=== PATIENT | male | born 1980 | race African-American/Black ===

== ENCOUNTER 2017-07-30 09:21 | Emergency (ER) | payer OTHER ==
[~2017-07-30] VITALS: Ht 188 cm; Wt 117.9 kg
[2017-07-30] MEDS ORDERED: MOBIC7.5 MG PO ×2 (09:56→10:06)
[2017-07-30] MEDS ORDERED: PENICILLIN V P500 MG PO (09:56)
[2017-07-30] MEDS ORDERED: ULTRAM 50MG TAB50 MG PO (10:06)
[2017-07-30] MEDS ORDERED: CLEOCIN HCL150 MG PO (10:06)
[2017-07-30 10:35] VITALS: BP 134/78
== END 2017-07-30 10:36 | disposition home or self-care (01) ==
LOC: ER 09:21
DX: K08.89 Other specified disorders of teeth and supporting structures (principal)

== ENCOUNTER 2017-07-31 15:13 | Inpatient (IN) | payer OTHER ==
[~2017-07-31] VITALS: Ht 188 cm; Wt 52.6 kg
--- NOTE | ~2017-07-31 | HC ---
[facility] [place] [address] CONSULTATION Name: LIBRADO TRAMMELL Room #: 448-P ADM IN M.R.#: [id number] Admission: 07/31/17 Attend Phys: Yves Curry DO Discharge: Date of : 76 Report #: [id number] THIS REPORT FOR: //name// CC: Ramana Ruiz MD [facility] physician/PCP Yves Curry DO DATE OF SERVICE: 08/02/2017 SURGEON: Zana Hyman MD REASON FOR CONSULTATION: Otolaryngic evaluation for deep neck abscess. HISTORY OF PRESENT ILLNESS: The patient is a 36-year-old gentleman presenting to the Emergency Department on 07/31 complaining of toothache. The patient had this ongoing for at least 2-3 days and had began to notice some facial swelling as well as trismus. The patient had first come in to the Emergency Room on 07/30. He was treated with IV clindamycin and recommended dental consultation. He waited to fill the prescription, took only one dose and then represented to the Emergency Room complaining of difficulty talking and chewing. The patient does not see a dentist on a regular basis and he cannot remember the last time he saw a dentist. Examination revealed obvious swelling along the mandible consistent with a dental infection. I have reviewed personally his CT. This shows multiple periapical lucencies surrounding the mandibular teeth on the left including the posterior molar. The patient has 9 lower teeth on both sides present. There are multiple abscesses. There was no obvious extension of the abscess through the mandibular wall. There is no deep neck abscess present. There is a phlegmon and obvious enlargement of the masseter muscle. This phlegmon does produce some mass effect, but no airway compromise. There does not appear to be any deep neck involvement. The patient is noted to have cervical adenopathy, which appears reactive. Examination also shows similar dental abscesses on the right. The patient was admitted and Infectious Diseases consulted who had recommended ENT evaluation as well as Oral Surgery consultation. The patient has been placed on IV antibiotic and pain control. I have discussed with Dr. Curry yesterday afternoon and have recommended transfer to a center as there is no Oral Surgery consultation available at this hospital. This has been arranged for transit today. The patient's white count shows an elevated white blood cell count 16,500 with a left shift. PAST MEDICAL HISTORY: Significant for chronic constipation, chronic dental caries without dental care. [address] [address] CONSULTATION Name: LIBRADO TRAMMELL Room #: 448-P [facility] IN .R.#: [id number] Admission: 07/31/17 Attend Phys: Yves Curry DO Discharge: Date of : 76 Report #: [id number] SOCIAL HISTORY: He is a tobacco user every day. He denies alcohol. Otherwise unknown. MEDICATIONS: Reviewed in his MAR. ALLERGIES: None. REVIEW OF SYSTEMS: The patient is complaining of trismus and pain in his face. He is having no difficulty breathing. Remaining review of systems is negative. PHYSICAL EXAMINATION: GENERAL: Shows a well-developed 36-year-old gentleman seen in his hospital room, obvious pain around the left mandible. VITAL SIGNS: Show a temperature of 98.9 with a T-max of 100.3, pulse of 75, blood pressure 111/66, respirations 20, oxygen saturation of 96-100% on room air. HEENT: He is normocephalic. Pupils equal, round, reactive to light. Nasal exam shows a deviated septum to the left. Oral cavity, trismus to about 15 mm. The patient has swelling over the left mandible with multiple carious teeth in poor condition. There is no swelling on the floor of mouth or tongue. The tongue is mobile. Posterior airway appears intact without swelling. Facial exam shows swelling with dense phlegmon over the masseter muscle. There is no obvious fluctuance. There is minimal swelling inferior to the mandible and no evidence of any tracheal shift or deep neck swelling. IMPRESSION: Multiple dental abscesses with resultant masseter phlegmon, swelling and possible early abscess formation. PLAN: Arrangement has been made for transfer to [facility] where the patient will have access to Oral Surgery care for extraction of multiple teeth. There was no evidence of any deep neck abscess. The patient does have evidence of an obvious phlegmon in the masseter space consistent with this infection. There may be some early abscess formation. I agree with current antibiotic use. If the patient is not able to be transferred in an expedient manner to a center where Oral Surgery care is available and/or if this infection progresses with further swelling, this may have to have a temporary treatment with incision and drainage of the masseter space at this hospital. Ultimately, the patient will need to be transferred for definitive care of his multiple dental caries with extraction. The patient is in no danger of any airway compromise or deep neck abscess at this point. I have discussed this with Dr. Curry and the patient. I will stand available if there is any worsening of symptoms prior to his transfer. <ELECTRONICALLY SIGNED> By: Zana Hyman MD 08/03/17 1340 1629 0001 Zana Hyman MD /nt
--- NOTE | ~2017-07-31 | O ---
[facility] [place] [address] OPERATIVE REPORT Name: LIBRADO TRAMMELL Room #: 251-P ADM IN M.R.#: [id number] Admission: 07/31/17 Attend Phys: Yves Curry DO Discharge: Date of : 76 Report #: [id number] THIS REPORT FOR: //name// CC: [facility] physician/PCP Yves Curry DO DATE OF SERVICE: 08/03/2017 SURGEON: Zana Hyman MD PREOPERATIVE DIAGNOSES: 1. Left dental space infection, phlegmon, abscess. 2. Multiple periapical dental abscesses. 3. Severe trismus. POSTOPERATIVE DIAGNOSES: 1. Left dental space infection, phlegmon, abscess. 2. Multiple periapical dental abscesses. 3. Severe trismus. OPERATION PERFORMED: 1. Left dental space exploration. 2. Incision and drainage, left dental space abscess. 3. Tracheotomy. INDICATIONS: The patient is a 36-year-old gentleman admitted via the Emergency Department with multiple periapical abscesses resulting in a large dental space phlegmon with questionable early abscess formation on CT. The patient was admitted for IV antibiotics and arrangements were made to transfer to [facility] for oral surgery consultation and extraction as this is not available at this institution Through the course of the last 36 hours, the patient has had worsening of his clinical course with increased swelling. I had recommended that we proceed with incision and drainage of the dental space presumed abscess as a temporizing treatment. The patient and his father are well aware that this will still need further treatment of his multiple periapical abscesses with endodontics or extraction Because the patient was not transferred to [place] in a timely fashion, I recommended that this be done during this hospitalization. In addition, the patient is at risk secondary to his swelling for airway control. In addition, the patient had severe trismus. DESCRIPTION OF PROCEDURE: The patient was brought to the operating room and placed supine on the operating table. An attempt was made with anesthesia for over half an hour to try intubation via both nasal and oral fiberoptic intubation. This was impossible, tried with 3 different anesthesiologists. [facility] [address] [place] [address] OPERATIVE REPORT Name: LIBRADO TRAMMELL Room #: 251-P [facility] IN M.R.#: [id number] Admission: 07/31/17 Attend Phys: Yves Curry DO Discharge: Date of : 76 Report #: [id number] After a point and because of the patient's discomfort, it was elected to proceed, the patient was begging to proceed with tracheotomy and forego any further treatment. For that reason, he was then made flat on the bed, the shoulder was placed, the neck was extended and attention turned to the neck. The planned incision was marked out and injected with 1% Xylocaine with 1:100,000 epinephrine, he was prepped for tracheotomy. Utilizing an awake technique with the patient spontaneously ventilating but sedated, an incision was made through skin and subcutaneous tissue and platysma down to the strap muscles with the Harmonic shear. The strap muscles were divided vertically in the midline and retracted laterally. Dissection was made down to the trachea. The thyroid isthmus was elevated off the trachea and the tracheal rings isolated. The cricoid was identified. Entrance was made between the second and third tracheal ring and a standard [place]y flap was created inferiorly based. This was then sutured to the inferior neck flap. There was no tube in place as the patient was spontaneously ventilating and a #8 cuffed nonfenestrated Shiley was placed without problem. The balloon was inflated. He was connected to the anesthesia circuit and tidal CO2 confirmed. The skin flaps were then closed loosely with interrupted 4-0 chromic and then 2-0 silk was used to suture the flanges of the tracheotomy tube to the skin. The patient was then undraped, turned 180 degrees and then reprepped and draped for incision and drainage of the abscess. At this point, the intraoral injection of 1% Xylocaine with 1:100,000 epinephrine was made. Cheek retractors were then placed and palpation was made in the masseter space. An incision was first made inferiorly along the mandible and a probe and exploration was done of this dental space, no obvious purulence could be found back to the posterior border of the mandible. At this point, attention was then turned to the masseter space inferior to Stensen's duct after injection and incision was made and hemostat was used to probe the masseter muscle. Dissection was then made posteriorly to the posterior border of the masseter muscle and posterior border of the mandible into the pterygoid space. Purulence was then encountered in this area. This was a fairly large pocket of pus, maybe 20 mL. This was then deflated and a pediatric catheter placed posteriorly and the patient's pterygoid spaces were irrigated with about 200 mL of normal saline. A ____ [place] was then placed deep into the wound, sutured to the oral mucosa with 2-0 silk. No dressing was necessary. The linear incision along the mandible was then closed with interrupted 4-0 chromic sutures. The patient was then returned to the Anesthesia, he was taken to the Recovery Room ventilated and sedated and placed on the ventilator. The patient will be watched overnight in the Intensive Care Unit for monitoring. He tolerated the procedure well. There were no complications. Blood loss was at least 20 mL. <ELECTRONICALLY SIGNED> By: Zana Hyman MD 08/04/17 1156 1555 1731 Zana Hyman MD /nt
--- NOTE | ~2017-07-31 | HC ---
[facility] [place] [address] CONSULTATION Name: LIBRADO TRAMMELL Room #: 448-P ADM IN M.R.#: [id number] Admission: 07/31/17 Attend Phys: Yves Curry DO Discharge: Date of : 76 Report #: [id number] THIS REPORT FOR: //name// CC: MY physician/PCP Yves Curry TYPE OF REPORT: Infectious diseases consultation. REASON FOR CONSULTATION: I was asked to evaluate concerning a left facial abscess. HISTORY OF PRESENT ILLNESS: The patient was a 36-year-old otherwise healthy individual, who has had pain to his posterior mandibular molar for the last week or so. He was unable to get in to see a dentist. Because of his increased pain, he presented to the Emergency Room yesterday and was placed on clindamycin. Subsequently, he has had a significant amount of swelling to his left face and increased pain. He therefore returned for further evaluation. CT scan shows evidence of several abscesses in the masseter and soft tissues. He has evidence of an apical abscess to the posterior molar. He has been about 5 years since he has seen a dentist. Otherwise, he is healthy. ALLERGIES: No known allergies. MEDICATIONS: As noted on his MAR including the clindamycin that was started yesterday. FAMILY HISTORY: Noncontributory. SOCIAL HISTORY: Lives with his father. He smokes cigarettes. No significant alcohol intake. REVIEW OF SYSTEMS: No cardiopulmonary, GI or complaints. PHYSICAL EXAMINATION: VITAL SIGNS: He is afebrile, hemodynamically stable. GENERAL: He is alert and cooperative and pleasant, in no acute distress. He had a left facial swelling. EYES: Unremarkable. MOUTH: He had trismus, unable to open his mouth well enough for me to examine the floor of the mouth in total. He had left facial swelling over the mandible and extending down into his neck. This area was exquisitely tender. The parotid gland appeared to be unremarkable with massage of the gland, no purulent drainage was evident from the duct. NECK: Otherwise, supple. Tender adenopathy in the cervical region. LUNGS: Clear. HEART: Regular. ABDOMEN: Soft and nontender. [facility] [address] [place] [address] CONSULTATION Name: JPLIBRADO Room #: 448-P ADM IN M.R.#: [id number] Admission: 07/31/17 Attend Phys: Yves Curry DO Discharge: Date of : 76 Report #: [id number] LABORATORY DATA: Sodium 138, potassium 3.4, bicarbonate 28, creatinine 1.4 and glucose 116. Lactate 0.7. Hemoglobin 13.9; WBC 15.7 and platelet count 264,000. RADIOLOGICAL DATA: CT scan of the neck did show enlargement of the left masseter muscle with low density changes consistent with multiple abscesses. There was also a smaller abscess in the left pterygoid muscle. Airway was unremarkable. IMPRESSION: Left mandibular molar apical abscess with extension into the soft tissues. PLAN: Recommend Unasyn and ENT evaluation for drainage. He will need oral surgery evaluation as well. Continue with chlorhexidine mouth rinse, hydration and repeat laboratory studies in a.m. <ELECTRONICALLY SIGNED> By: Ramana Ruiz MD 08/01/17 1745 2032 0037 Ramana Ruiz MD /nt
[~2017-07-31 15:13] MED LIST: CLEOCIN HCL150 MG PO; MOBIC7.5 MG PO; PENICILLIN V P500 MG PO; ULTRAM 50MG TAB50 MG PO
[2017-07-31 15:14] VITALS: BP 133/80
[2017-07-31 16:47] LABS: HEMATOCRIT 40.8 % (42.0-52.0); HEMOGLOBIN 13.9 gm/dL (14.0-18.0); MCH 29.8 pg (26.0-34.0); MCHC 33.9 g/dL (28.0-37.0); MCV 87.8 fL (80.0-100.0); RBC 4.65 mil/uL (4.50-6.00); RDW 14.2 % (10.5-14.5); WBC 15.7 thou/uL (4.0-11.0)
[2017-07-31 16:54] LABS: CALCIUM 9.4 mg/dL (8.5-10.1); CREATININE 1.4 mg/dL (0.7-1.3); POTASSIUM 3.4 mmol/L (3.5-5.1)
[2017-07-31 18:13] VITALS: BP 130/73
[2017-07-31 21:13] VITALS: BP 139/73
[2017-08-01 03:19] VITALS: BP 139/69
[2017-08-01 05:32] LABS: HEMATOCRIT 36.8 % (42.0-52.0); HEMOGLOBIN 12.3 gm/dL (14.0-18.0); MCH 29.3 pg (26.0-34.0); MCHC 33.4 g/dL (28.0-37.0); MCV 87.6 fL (80.0-100.0); PLATELET COUNT 281 thou/uL (150-400); RDW 14.2 % (10.5-14.5); WBC 18.7 thou/uL (4.0-11.0)
[2017-08-01 05:49] LABS: CALCIUM 9.1 mg/dL (8.5-10.1); CREATININE 1.2 mg/dL (0.7-1.3); POTASSIUM 3.8 mmol/L (3.5-5.1)
[2017-08-01 07:52] VITALS: BP 108/63
[2017-08-01 08:42] LABS: ABSOLUTE NEUTROPHILS 17.2 thou/uL (1.4-8.2)
[2017-08-01 15:04] VITALS: BP 133/79
[2017-08-01 21:35] VITALS: BP 117/64
[2017-08-02 04:52] VITALS: BP 135/66
[2017-08-02 05:53] LABS: HEMATOCRIT 34.6 % (42.0-52.0); HEMOGLOBIN 11.5 gm/dL (14.0-18.0); MCH 29.4 pg (26.0-34.0); MCHC 33.2 g/dL (28.0-37.0); MCV 88.6 fL (80.0-100.0); PLATELET COUNT 272 thou/uL (150-400); RBC 3.91 mil/uL (4.50-6.00); RDW 14.1 % (10.5-14.5); WBC 16.5 thou/uL (4.0-11.0)
[2017-08-02 06:02] LABS: CALCIUM 8.5 mg/dL (8.5-10.1); CREATININE 1.3 mg/dL (0.7-1.3); POTASSIUM 3.1 mmol/L (3.5-5.1)
[2017-08-02 07:22] LABS: ABSOLUTE NEUTROPHILS 13.7 thou/uL (1.4-8.2); ANISOCYTOSIS SLIGHT
[2017-08-02 08:15] VITALS: BP 111/66
[2017-08-02 16:20] VITALS: BP 138/73
[2017-08-02 21:10] VITALS: BP 136/84
[2017-08-03] VITALS (16 sets, daily range): BP systolic 110–136; BP diastolic 60–84
[2017-08-03 16:17] LABS: BE(vivo) 1.6 mmol/L (-2 to +3); HCO3 27.7 mmol/L (22.0-26.0); PO2 100.1 mmHg (80.0-100.0); pH 7.361 (7.360-7.450); sO2 97.3 % (92.0-98.0)
[2017-08-04] VITALS (47 sets, daily range): BP systolic 95–124; BP diastolic 53–74
[2017-08-04 04:45] LABS: ABSOLUTE NEUTROPHILS 17.3 thou/uL (1.4-8.2); BASOPHILS 0.4 % (0.0-2.0); HEMOGLOBIN 11.4 gm/dL (14.0-18.0); LYMPHOCYTES 5.6 % (24.0-44.0); MCH 29.2 pg (26.0-34.0); MCHC 32.5 g/dL (28.0-37.0); MCV 89.7 fL (80.0-100.0); MONOCYTES 6.5 % (1.0-8.0); PLATELET COUNT 323 thou/uL (150-400); POLYS 87.5 % (36.0-66.0); RDW 14.4 % (10.5-14.5); WBC 19.8 thou/uL (4.0-11.0)
[2017-08-04 04:53] LABS: CALCIUM 8.6 mg/dL (8.5-10.1); POTASSIUM 3.9 mmol/L (3.5-5.1)
[2017-08-05] VITALS (31 sets, daily range): BP systolic 97–120; BP diastolic 48–67
[2017-08-05 05:20] LABS: ABSOLUTE NEUTROPHILS 9.8 thou/uL (1.4-8.2); BASOPHILS 0.4 % (0.0-2.0); EOSINOPHILS 0.8 % (0.0-3.0); HEMATOCRIT 31.8 % (42.0-52.0); HEMOGLOBIN 10.3 gm/dL (14.0-18.0); MCH 29.3 pg (26.0-34.0); MCHC 32.4 g/dL (28.0-37.0); MCV 90.4 fL (80.0-100.0); MONOCYTES 9.3 % (1.0-8.0); PLATELET COUNT 330 thou/uL (150-400); POLYS 67.5 % (36.0-66.0); RBC 3.52 mil/uL (4.50-6.00); RDW 14.7 % (10.5-14.5); WBC 14.5 thou/uL (4.0-11.0)
[2017-08-05 05:30] LABS: CALCIUM 8.3 mg/dL (8.5-10.1); CREATININE 0.9 mg/dL (0.7-1.3); POTASSIUM 3.4 mmol/L (3.5-5.1)
[2017-08-05 13:34] LABS: POTASSIUM 3.9 mmol/L (3.5-5.1)
[2017-08-06] VITALS (39 sets, daily range): BP systolic 93–135; BP diastolic 50–84
[2017-08-06 12:13] LABS: HEMATOCRIT 34.6 % (42.0-52.0); HEMOGLOBIN 11.4 gm/dL (14.0-18.0); MCH 29.5 pg (26.0-34.0); MCHC 32.9 g/dL (28.0-37.0); MCV 89.5 fL (80.0-100.0); RBC 3.87 mil/uL (4.50-6.00); RDW 14.4 % (10.5-14.5); WBC 10.6 thou/uL (4.0-11.0)
[2017-08-06 12:34] LABS: ALBUMIN 2.3 g/dL (3.4-5.0); CALCIUM 8.1 mg/dL (8.5-10.1); POTASSIUM 3.9 mmol/L (3.5-5.1); TOTAL BILIRUBIN 0.2 mg/dL (<0.1-1.0)
[2017-08-07] VITALS (29 sets, daily range): BP systolic 102–127; BP diastolic 57–72
[2017-08-07 05:50] LABS: HEMATOCRIT 33.4 % (42.0-52.0); HEMOGLOBIN 11.1 gm/dL (14.0-18.0); MCH 29.8 pg (26.0-34.0); MCHC 33.2 g/dL (28.0-37.0); RBC 3.71 mil/uL (4.50-6.00); RDW 14.6 % (10.5-14.5); WBC 10.9 thou/uL (4.0-11.0)
[2017-08-07 06:09] LABS: ALBUMIN 2.2 g/dL (3.4-5.0); CALCIUM 8.4 mg/dL (8.5-10.1); CREATININE 0.9 mg/dL (0.7-1.3); POTASSIUM 3.4 mmol/L (3.5-5.1); TOTAL BILIRUBIN 0.2 mg/dL (<0.1-1.0); TOTAL PROTEIN 6.5 g/dL (6.4-8.2)
[2017-08-07 08:24] LABS: BE(vivo) 0.1 mmol/L (-2 to +3); PCO2 41.9 mmHg (35.0-45.0); pH 7.394 (7.360-7.450); sO2 91.7 % (92.0-98.0)
[2017-08-07 13:23] LABS: PROTIME 10.3 Seconds (9.3-11.4)
[2017-08-08] VITALS (24 sets, daily range): BP systolic 104–135; BP diastolic 56–87
[2017-08-08 05:40] LABS: BE(vivo) 1.3 mmol/L (-2 to +3); HCO3 26.6 mmol/L (22.0-26.0); PCO2 44.9 mmHg (35.0-45.0); PO2 95.5 mmHg (80.0-100.0); pH 7.391 (7.360-7.450); sO2 97.2 % (92.0-98.0)
[2017-08-08 05:56] LABS: ABSOLUTE NEUTROPHILS 8.9 thou/uL (1.4-8.2); BASOPHILS 0.6 % (0.0-2.0); EOSINOPHILS 1.8 % (0.0-3.0); HEMATOCRIT 34.1 % (42.0-52.0); HEMOGLOBIN 11.1 gm/dL (14.0-18.0); LYMPHOCYTES 17.7 % (24.0-44.0); MCH 29.3 pg (26.0-34.0); MCHC 32.6 g/dL (28.0-37.0); MCV 89.9 fL (80.0-100.0); MONOCYTES 6.9 % (1.0-8.0); PLATELET COUNT 308 thou/uL (150-400); RBC 3.79 mil/uL (4.50-6.00); RDW 14.7 % (10.5-14.5); WBC 12.1 thou/uL (4.0-11.0)
[2017-08-08 05:59] LABS: CALCIUM 8.5 mg/dL (8.5-10.1); CREATININE 0.9 mg/dL (0.7-1.3); MAGNESIUM 1.9 mg/dL (1.8-2.4); POTASSIUM 3.5 mmol/L (3.5-5.1)
[2017-08-09] VITALS (11 sets, daily range): BP systolic 109–130; BP diastolic 56–84
[2017-08-09 06:01] LABS: ABSOLUTE NEUTROPHILS 7.1 thou/uL (1.4-8.2); BASOPHILS 0.4 % (0.0-2.0); EOSINOPHILS 2.1 % (0.0-3.0); HEMATOCRIT 30.8 % (42.0-52.0); HEMOGLOBIN 10.3 gm/dL (14.0-18.0); LYMPHOCYTES 18.4 % (24.0-44.0); MCH 29.8 pg (26.0-34.0); MCHC 33.6 g/dL (28.0-37.0); MCV 88.7 fL (80.0-100.0); MONOCYTES 6.5 % (1.0-8.0); PLATELET COUNT 260 thou/uL (150-400); POLYS 72.6 % (36.0-66.0); RBC 3.47 mil/uL (4.50-6.00); RDW 14.1 % (10.5-14.5); WBC 9.8 thou/uL (4.0-11.0)
[2017-08-09 06:21] LABS: CALCIUM 6.8 mg/dL (8.5-10.1); CREATININE 0.7 mg/dL (0.7-1.3); POTASSIUM 3.1 mmol/L (3.5-5.1)
[2017-08-10 04:10] VITALS: BP 108/57
[2017-08-10 07:19] VITALS: BP 110/64
[2017-08-10 12:20] VITALS: BP 119/67
[2017-08-10 13:26] LABS: ABSOLUTE NEUTROPHILS 7.1 thou/uL (1.4-8.2); BASOPHILS 0.7 % (0.0-2.0); EOSINOPHILS 2.4 % (0.0-3.0); HEMOGLOBIN 11.6 gm/dL (14.0-18.0); LYMPHOCYTES 17.3 % (24.0-44.0); MCH 30.1 pg (26.0-34.0); MCV 88.4 fL (80.0-100.0); MONOCYTES 7.6 % (1.0-8.0); PLATELET COUNT 274 thou/uL (150-400); RBC 3.84 mil/uL (4.50-6.00); RDW 14.3 % (10.5-14.5); WBC 9.8 thou/uL (4.0-11.0)
[2017-08-10 13:31] LABS: CALCIUM 8.2 mg/dL (8.5-10.1); CREATININE 0.8 mg/dL (0.7-1.3); POTASSIUM 3.6 mmol/L (3.5-5.1)
[2017-08-10 15:41] VITALS: BP 131/59
[2017-08-10 19:20] VITALS: BP 111/58
[2017-08-11 03:40] VITALS: BP 110/57
[2017-08-11 04:33] LABS: ABSOLUTE NEUTROPHILS 6.9 thou/uL (1.4-8.2); BASOPHILS 0.3 % (0.0-2.0); EOSINOPHILS 2.2 % (0.0-3.0); HEMATOCRIT 33.7 % (42.0-52.0); HEMOGLOBIN 11.3 gm/dL (14.0-18.0); LYMPHOCYTES 16.6 % (24.0-44.0); MCH 29.6 pg (26.0-34.0); MCHC 33.5 g/dL (28.0-37.0); MCV 88.3 fL (80.0-100.0); MONOCYTES 8.3 % (1.0-8.0); PLATELET COUNT 281 thou/uL (150-400); POLYS 72.6 % (36.0-66.0); RBC 3.81 mil/uL (4.50-6.00); RDW 14.4 % (10.5-14.5); WBC 9.5 thou/uL (4.0-11.0)
[2017-08-11 04:52] LABS: CALCIUM 8.4 mg/dL (8.5-10.1); CREATININE 0.8 mg/dL (0.7-1.3); POTASSIUM 3.5 mmol/L (3.5-5.1)
[2017-08-11 08:00] VITALS: BP 109/50
[2017-08-11 11:50] VITALS: BP 102/56
[2017-08-11 16:11] VITALS: BP 116/63
[2017-08-11 19:21] VITALS: BP 116/68
[2017-08-12 03:48] VITALS: BP 96/42
[2017-08-12 07:24] VITALS: BP 118/41
[2017-08-12 11:18] VITALS: BP 110/53
[2017-08-12 15:14] VITALS: BP 111/60
[2017-08-12 20:00] VITALS: BP 129/61
[2017-08-13 03:40] LABS: ABSOLUTE NEUTROPHILS 3.3 thou/uL (1.4-8.2); BASOPHILS 0.6 % (0.0-2.0); EOSINOPHILS 2.9 % (0.0-3.0); HEMATOCRIT 32.6 % (42.0-52.0); LYMPHOCYTES 38.1 % (24.0-44.0); MCH 30.1 pg (26.0-34.0); MCHC 33.6 g/dL (28.0-37.0); MCV 89.6 fL (80.0-100.0); MONOCYTES 9.4 % (1.0-8.0); PLATELET COUNT 265 thou/uL (150-400); RBC 3.64 mil/uL (4.50-6.00); RDW 14.8 % (10.5-14.5); WBC 6.8 thou/uL (4.0-11.0)
[2017-08-13 03:56] LABS: CALCIUM 8.2 mg/dL (8.5-10.1); POTASSIUM 3.4 mmol/L (3.5-5.1)
[2017-08-13 04:00] VITALS: BP 101/58
[2017-08-13 07:36] VITALS: BP 112/50
[2017-08-13 11:14] VITALS: BP 122/63
[2017-08-13 16:19] VITALS: BP 122/75
[2017-08-13 19:44] VITALS: BP 123/56
[2017-08-13 20:34] VITALS: BP 166/64
[2017-08-14 03:34] VITALS: BP 117/63
[2017-08-14 08:01] VITALS: BP 123/72
[2017-08-14] MEDS ORDERED: HYDROCODON-ACE1 EAC8 PO (09:16)
[2017-08-14] MEDS ORDERED: AUGMENTIN 875-1 EACH PO (09:16)
[2017-08-14 11:21] VITALS: BP 123/72
[2017-08-14 12:14] VITALS: BP 106/55
== END 2017-08-14 15:50 | DRG 3 ==
LOC: ER 15:13 → EROBS 17:23 → 4S 17:23 → ICU 08-03 17:09 → 3W 08-09 14:26
PROVIDERS: Emergency Medicine; Family Medicine; Hospitalist; Internal Medicine; Internal Medicine Pulmonary Disease; Specialist
DX: K04.7 Periapical abscess without sinus (principal); K12.2 Cellulitis and abscess of mouth; R25.2 Cramp and spasm; M27.2 Inflammatory conditions of jaws; K59.09 Other constipation; F17.210 Nicotine dependence, cigarettes, uncomplicated; E87.6 Hypokalemia; Z28.21 Immunization not carried out because of patient refusal
CPT/HCPCS: 10078; 10100; 27000; 50010; 50101; 50386; 50398; 52190; 56524; 56527; 56528; 57006; 62110; 62900; 64007; 64047; 70005

== ENCOUNTER 2020-06-12 18:07 | Emergency (ER) | payer OTHER ==
[~2020-06-12] VITALS: Ht 188 cm; Wt 149.7 kg
[~2020-06-12 18:07] MED LIST changes: +AUGMENTIN 875-1 EACH PO; +HYDROCODON-ACE1 EAC8 PO
[2020-06-12] MEDS ORDERED: ASPIR 8181 MG PO (18:20)
[2020-06-12 23:33] LABS: BASOPHILS 0.6 % (0.0-2.0); CALCIUM 9.1 mg/dL (8.5-10.1); CREATININE 1.2 mg/dL (0.7-1.3); EOSINOPHILS 2.8 % (0.0-3.0); HEMATOCRIT 41.9 % (42.0-52.0); HEMOGLOBIN 13.6 gm/dL (14.0-18.0); MCH 27.7 pg (26.0-34.0); MCHC 32.5 g/dL (28.0-37.0); MONOCYTES 7.7 % (1.0-8.0); PLATELET COUNT 275 thou/uL (150-400); POLYS 58.9 % (36.0-66.0); POTASSIUM 3.8 mmol/L (3.5-5.1); RBC 4.93 mil/uL (4.50-6.00); RDW 16.9 % (10.5-14.5); WBC 10.3 thou/uL (4.0-11.0)
[2020-06-13 02:30] VITALS: BP 117/68
== END 2020-06-13 02:31 | disposition home or self-care (01) ==
LOC: ER 18:07
PROVIDERS: Emergency Medicine
DX: R59.0 Localized enlarged lymph nodes (principal); E11.9 Type 2 diabetes mellitus without complications; F17.210 Nicotine dependence, cigarettes, uncomplicated; Z79.82 Long term (current) use of aspirin; Z79.899 Other long term (current) drug therapy